=== PATIENT | female | born 1940 | race Caucasian/White ===

== ENCOUNTER 2019-04-15 01:16 | Outpatient (CLI) | payer MEDICARE, OTHER, SELFPAY ==
--- NOTE | 2019-04-15 13:36 | DI.NM_ITS ---
APPROVED REPORT Exam: Pharmacologic Patient Location: Out-Patient Room/Bed: Stress Nurse: Angy Costa RN BMI: 21.53 Baseline Rhythm: Sinus rhythm Indications: Myocardial infarction, subsequent non ST eval. Medical History Medical History: CAD s/p SD Cardiac Medications: Aspirin. Metoprolol., Allergies: No known drug allergies Cardiac Risk Factors: HTN, Hyperlipidemia, Cardiac arrythmia. Exercise History: Indeterminate Physical Disabilities: Parkinsons disease. Lung Sounds: Clear to auscultation Heart Sounds: Regular Stress Test Details Test: Pharmacologic stress testing performed using 0.4 mg of regadenoson per 5 mL given IV over 10 s econds. Nuclear Acquisition: Rest Tc-99m/Stress Tc-99m 1 day Rest Isotope: Tc-99m Sestamibi. Dose: 10.5 Date: 04/15/2019 Injection Time: 1230 Stress Isotope: Tc-99m Sestamibi. Dose: 33.0 Date: 04/15/2019 Injection Time: 1410 HR Max Heart Rate (APMHR): 141 bpm Resting HR Supine: 68 bpm Target HR (85% APMHR): 119 bpm Max HR Achieved: 94 bpm % of APMHR: 66 BP Resting BP Supine: 140/80 mmHg Max BP: 140/80 mmHg ECG Resting ECG: Sinus Rhythm ST Change: Normal Ectopy: none Stress ECG: Sinus Rhythm ST Change: Normal Arrhythmia: APC's Recovery ECG: Sinus Rhythm Recovery ST Change: Normal Recovery Arrhythmia: None Clinical Stress Symptoms: No side effects experienced from Lexiscan injection Stress ECG Conclusion 1. Patient had no evidence of ischemia on the ECG portion of this exam. Protocol Used: Regadenoson Stress Test Summary STAGE HR BP Symptoms NOTES Supine Standing 68 140/80 1 min post lexiscan injection 75 128/60 2 min 3 min post lexiscan injection 94 130/80 4 min 5 min 6 min post lexiscan injection 90 120/80 MPI Conclusion Ejection fraction was 67% with no wall motion abnormalities There is no evidence of ischemia on the imaging portion of this exam. This represents a normal SPECT stress test. Radiologist Interpretation Radiologist agrees with [employer]'s Interpretation. Radiologist Interpretation by: Angela Nix MD Interpretation Date/Time: 04/16/2019 09:24:05
[2019-04-15] MEDS: Regadenoson 0.4 MG/5 ML SYR IVP (14:38)
== END 2019-04-15 01:36 ==
PROVIDERS: PCP Neuromusculoskeletal Medicine & OMM; Visit Provider Internal Medicine Interventional Cardiology
DX: R07.9 Chest pain, unspecified (principal); I25.10 Atherosclerotic heart disease of native coronary artery without angina pectoris; I25.2 Old myocardial infarction; I10 Essential (primary) hypertension; E78.5 Hyperlipidemia, unspecified; G20 Parkinson's disease
CPT/HCPCS: 78452; 93016; 93018; 93017; J2785

== ENCOUNTER → 2019-04-24 13:50 | Outpatient (BNVA) | payer MEDICARE, OTHER, SELFPAY | PROVIDERS: PCP Neuromusculoskeletal Medicine & OMM; Referring Provider Neuromusculoskeletal Medicine & OMM; Visit Provider Psychiatry & Neurology Neurology | DX: R29.2 Abnormal reflex (principal); G20 Parkinson's disease; I67.9 Cerebrovascular disease, unspecified; G31.84 Mild cognitive impairment of uncertain or unknown etiology; R44.1 Visual hallucinations; I10 Essential (primary) hypertension | CPT/HCPCS: 99205 ==

== ENCOUNTER → 2019-05-29 09:10 | Outpatient (BNVA) | payer MEDICARE, OTHER, SELFPAY | PROVIDERS: PCP Neuromusculoskeletal Medicine & OMM; Referring Provider Neuromusculoskeletal Medicine & OMM; Visit Provider Psychiatry & Neurology Neurology | DX: G20 Parkinson's disease; R44.1 Visual hallucinations; G31.84 Mild cognitive impairment of uncertain or unknown etiology; I67.9 Cerebrovascular disease, unspecified | CPT/HCPCS: 99214 ==

== ENCOUNTER → 2019-07-10 07:45 | Outpatient (BNVA) | payer MEDICARE, OTHER, SELFPAY | PROVIDERS: PCP Neuromusculoskeletal Medicine & OMM; Referring Provider Neuromusculoskeletal Medicine & OMM; Visit Provider Psychiatry & Neurology Neurology | DX: G20 Parkinson's disease (principal); R29.2 Abnormal reflex; I67.9 Cerebrovascular disease, unspecified; G31.84 Mild cognitive impairment of uncertain or unknown etiology; R44.1 Visual hallucinations; K59.00 Constipation, unspecified; I10 Essential (primary) hypertension | CPT/HCPCS: 99213; 99442 ==

== ENCOUNTER → 2019-10-10 12:25 | Outpatient (BNVA) | payer MEDICARE, OTHER, SELFPAY | PROVIDERS: PCP Neuromusculoskeletal Medicine & OMM; Referring Provider Neuromusculoskeletal Medicine & OMM; Visit Provider Psychiatry & Neurology Neurology | DX: G20 Parkinson's disease (principal); R29.2 Abnormal reflex; I10 Essential (primary) hypertension; I67.9 Cerebrovascular disease, unspecified; G31.84 Mild cognitive impairment of uncertain or unknown etiology; R44.1 Visual hallucinations; K59.00 Constipation, unspecified; R29.6 Repeated falls | CPT/HCPCS: 99214 ==

== ENCOUNTER → 2019-12-25 13:38 | Outpatient (BNVA) | payer MEDICARE, OTHER, SELFPAY | PROVIDERS: PCP Neuromusculoskeletal Medicine & OMM; Referring Provider Neuromusculoskeletal Medicine & OMM; Visit Provider Psychiatry & Neurology Neurology | DX: G20 Parkinson's disease (principal); R29.2 Abnormal reflex; I67.9 Cerebrovascular disease, unspecified; G31.84 Mild cognitive impairment of uncertain or unknown etiology; R44.1 Visual hallucinations; K59.00 Constipation, unspecified | CPT/HCPCS: 99214 ==

== ENCOUNTER → 2020-01-22 13:13 | Outpatient (BNVA) | payer MEDICARE, OTHER, SELFPAY | PROVIDERS: PCP Neuromusculoskeletal Medicine & OMM; Referring Provider Neuromusculoskeletal Medicine & OMM; Visit Provider Psychiatry & Neurology Neurology | DX: G20 Parkinson's disease (principal); R29.2 Abnormal reflex; I67.9 Cerebrovascular disease, unspecified; G31.84 Mild cognitive impairment of uncertain or unknown etiology; R44.1 Visual hallucinations; K59.00 Constipation, unspecified | CPT/HCPCS: 99213 ==

== ENCOUNTER → 2020-03-26 13:01 | Outpatient (BNVA) | payer MEDICARE, OTHER, SELFPAY | PROVIDERS: PCP Neuromusculoskeletal Medicine & OMM; Referring Provider Neuromusculoskeletal Medicine & OMM; Visit Provider Psychiatry & Neurology Neurology | DX: G20 Parkinson's disease (principal); R29.2 Abnormal reflex; I67.9 Cerebrovascular disease, unspecified; G31.84 Mild cognitive impairment of uncertain or unknown etiology; R44.1 Visual hallucinations; K59.00 Constipation, unspecified | CPT/HCPCS: 99214 ==

== ENCOUNTER → 2020-05-28 13:28 | Outpatient (BNVA) | payer MEDICARE, OTHER, SELFPAY | PROVIDERS: PCP Neuromusculoskeletal Medicine & OMM; Referring Provider Neuromusculoskeletal Medicine & OMM; Visit Provider Psychiatry & Neurology Neurology | DX: G20 Parkinson's disease (principal); R29.2 Abnormal reflex; I67.9 Cerebrovascular disease, unspecified; G31.84 Mild cognitive impairment of uncertain or unknown etiology; R44.1 Visual hallucinations; K59.00 Constipation, unspecified; I10 Essential (primary) hypertension | CPT/HCPCS: 99213 ==

== ENCOUNTER → 2020-07-30 13:11 | Outpatient (BNVA) | payer MEDICARE, OTHER, SELFPAY | PROVIDERS: PCP Neuromusculoskeletal Medicine & OMM; Referring Provider Neuromusculoskeletal Medicine & OMM; Visit Provider Psychiatry & Neurology Neurology | DX: G20 Parkinson's disease (principal); G31.84 Mild cognitive impairment of uncertain or unknown etiology; I67.9 Cerebrovascular disease, unspecified; K59.00 Constipation, unspecified; R29.2 Abnormal reflex; R44.1 Visual hallucinations | CPT/HCPCS: 99213 ==

== ENCOUNTER → 2020-12-09 10:38 | Outpatient (BNVA) | payer MEDICARE, OTHER, SELFPAY | PROVIDERS: PCP Neuromusculoskeletal Medicine & OMM; Referring Provider Neuromusculoskeletal Medicine & OMM; Visit Provider Psychiatry & Neurology Neurology | DX: G20 Parkinson's disease (principal); G62.9 Polyneuropathy, unspecified; R29.2 Abnormal reflex; I67.9 Cerebrovascular disease, unspecified; G31.84 Mild cognitive impairment of uncertain or unknown etiology; R44.1 Visual hallucinations; K59.00 Constipation, unspecified; I10 Essential (primary) hypertension | CPT/HCPCS: 99213 ==

== ENCOUNTER → 2021-03-03 10:11 | Outpatient (BNVA) | payer MEDICARE, OTHER, SELFPAY | PROVIDERS: PCP Neuromusculoskeletal Medicine & OMM; Referring Provider Neuromusculoskeletal Medicine & OMM; Visit Provider Psychiatry & Neurology Neurology | DX: G20 Parkinson's disease (principal); R29.2 Abnormal reflex; I67.9 Cerebrovascular disease, unspecified; G31.84 Mild cognitive impairment of uncertain or unknown etiology; R44.1 Visual hallucinations; K59.00 Constipation, unspecified; R29.6 Repeated falls | CPT/HCPCS: 99214 ==

== ENCOUNTER → 2021-05-05 12:19 | Outpatient (BNVA) | payer MEDICARE, OTHER, SELFPAY | PROVIDERS: PCP Neuromusculoskeletal Medicine & OMM; Referring Provider Neuromusculoskeletal Medicine & OMM; Visit Provider Psychiatry & Neurology Neurology | DX: R55 Syncope and collapse (principal); G20 Parkinson's disease; R29.2 Abnormal reflex; I67.9 Cerebrovascular disease, unspecified; G31.84 Mild cognitive impairment of uncertain or unknown etiology; R44.1 Visual hallucinations; K59.00 Constipation, unspecified | CPT/HCPCS: 99214 ==

== ENCOUNTER → 2021-06-24 13:05 | Outpatient (BNVA) | payer MEDICARE, OTHER, SELFPAY | PROVIDERS: PCP Neuromusculoskeletal Medicine & OMM; Referring Provider Neuromusculoskeletal Medicine & OMM; Visit Provider Psychiatry & Neurology Neurology | DX: R55 Syncope and collapse (principal); G20 Parkinson's disease; I67.9 Cerebrovascular disease, unspecified; I48.91 Unspecified atrial fibrillation; Z79.01 Long term (current) use of anticoagulants; G31.84 Mild cognitive impairment of uncertain or unknown etiology; K59.00 Constipation, unspecified; R44.1 Visual hallucinations | CPT/HCPCS: 99214 ==

== ENCOUNTER → 2021-11-16 09:23 | Outpatient (BNVA) | payer MEDICARE, OTHER, SELFPAY | PROVIDERS: PCP Neuromusculoskeletal Medicine & OMM; Referring Provider Neuromusculoskeletal Medicine & OMM; Visit Provider Psychiatry & Neurology Neurology | DX: R55 Syncope and collapse (principal); G20 Parkinson's disease; I67.9 Cerebrovascular disease, unspecified; Z79.82 Long term (current) use of aspirin; K59.00 Constipation, unspecified; G31.84 Mild cognitive impairment of uncertain or unknown etiology; R44.1 Visual hallucinations | CPT/HCPCS: 99214 ==

== ENCOUNTER → 2022-01-03 12:17 | Outpatient (BNVA) | payer MEDICARE, OTHER, SELFPAY | PROVIDERS: PCP Neuromusculoskeletal Medicine & OMM; Referring Provider Neuromusculoskeletal Medicine & OMM; Visit Provider Psychiatry & Neurology Neurology | DX: G20 Parkinson's disease (principal); I48.91 Unspecified atrial fibrillation; Z79.01 Long term (current) use of anticoagulants; G31.84 Mild cognitive impairment of uncertain or unknown etiology; R44.1 Visual hallucinations; K59.00 Constipation, unspecified; R55 Syncope and collapse; I10 Essential (primary) hypertension | CPT/HCPCS: 99215 ==

== ENCOUNTER → 2022-04-12 09:55 | Outpatient (BNVA) | payer MEDICARE, OTHER, SELFPAY | PROVIDERS: PCP Neuromusculoskeletal Medicine & OMM; Referring Provider Neuromusculoskeletal Medicine & OMM; Visit Provider Psychiatry & Neurology Neurology | DX: G20 Parkinson's disease; R29.2 Abnormal reflex; I67.9 Cerebrovascular disease, unspecified; Z79.82 Long term (current) use of aspirin; Z79.01 Long term (current) use of anticoagulants; R44.1 Visual hallucinations; K59.00 Constipation, unspecified; R55 Syncope and collapse; I10 Essential (primary) hypertension | CPT/HCPCS: 99215 ==

== ENCOUNTER 2022-05-23 09:11 | Outpatient (CLI) | payer MEDICARE, OTHER, SELFPAY ==
--- NOTE | 2022-05-23 09:00 | RT.EKG_ITS ---
APPROVED REPORT Exam: Resting ECG Reason for Exam: SVT, afib Patient Location: O HR:82 bpm ECG Measurements Heart Rate 82 AXIS IN 124 P 125 QRSd 142 QRS -18 QT 373 T 136 QTc 436 Conclusion Sinus rhythm...normal P axis, V-rate 50- 99 Normal Electrocardiogram
== END 2022-05-23 09:12 | disposition home or self-care (01) ==
LOC: DI.CARD 09:11
PROVIDERS: PCP Neuromusculoskeletal Medicine & OMM; Visit Provider Internal Medicine Cardiovascular Disease
DX: I47.1 Supraventricular tachycardia (principal); I48.91 Unspecified atrial fibrillation; R55 Syncope and collapse
CPT/HCPCS: 93010

== ENCOUNTER → 2022-05-23 11:21 | Outpatient (BNVA) | payer MEDICARE, OTHER, SELFPAY | PROVIDERS: PCP Neuromusculoskeletal Medicine & OMM; Referring Provider Neuromusculoskeletal Medicine & OMM; Visit Provider Internal Medicine Cardiovascular Disease | DX: I48.0 Paroxysmal atrial fibrillation (principal); I47.1 Supraventricular tachycardia; I49.9 Cardiac arrhythmia, unspecified; R55 Syncope and collapse; G20 Parkinson's disease | CPT/HCPCS: 93005; 99203; 99214 ==